=== PATIENT | female | born 1945 | race Caucasian/White ===

== ENCOUNTER 2020-02-12 17:58 | Inpatient (IN) | payer MEDICARE, MEDICAID ==
[~2020-02-12] VITALS: Ht 167.6 cm; Wt 67.7 kg
[2020-02-12] MEDS ORDERED: SODIUM CHLORIDE 0.9% 1,000 ML IV ONE (18:45)
[2020-02-12 19:14] LABS: BASOPHILS % 0.7 % (0.0-2.0); CHLORIDE 103 mEq/L (98-107); EOSINOPHILS % 0.7 % (0.0-5.0); HEMATOCRIT. 42.2 % (36.0-48.0); HEMOGLOBIN. 14.6 g/dL (12.0-16.0); MEAN CORPUSCULAR HEMOGLOBIN 31.9 pg (28.0-32.0); MEAN CORPUSCULAR VOLUME 92.5 fL (81.0-99.0); MEAN PLATELET VOLUME 7.4 fl (7.4-10.4); NEUTROPHILS % 73.6 % (40.0-76.0); PLATELET 260 x1000/uL (130-400); RED BLOOD CELL COUNT 4.57 mill/uL (4.2-5.4); RED CELL DISTRIBUTION WIDTH 14.4 % (11.6-14.6)
[2020-02-12 19:53] LABS: CLARITY URINE CLEAR (CLEAR); COLOR URINE YELLOW (YELLOW); KETONES URINE NEGATIVE (NEGATIVE); LEUKOCYTE ESTERASE URINE TRACE (NEGATIVE); NITRITE URINE NEGATIVE (NEGATIVE); OCCULT BLOOD URINE NEGATIVE (NEGATIVE); PROTEIN URINE TRACE (NEGATIVE); SPECIFIC GRAVITY URINE 1.014 (1.005-1.030)
[2020-02-12] MEDS ORDERED: ACETAMINOPHEN 325MG TABLET PO ONE (20:45)
[2020-02-12] MEDS ORDERED: ACETAMINOPHEN 325MG TABLET PO PRN (21:00)
[2020-02-12] MEDS: SODIUM CHLORIDE 0.9% 1,000 ML IV SCH (21:26)
[2020-02-13 00:10] VITALS: BP 144/60
[2020-02-13] MEDS: MORPHINE SULFATE 2 MG/ML CPJ (NOT FOR IM USE) IV PRN ×4 (00:35→21:01)
[2020-02-13] MEDS ORDERED: DOXE50CA4 MT (01:00)
[2020-02-13] MEDS ORDERED: MULT-1195 MT (01:00)
[2020-02-13] MEDS ORDERED: DOXE150C MT (01:00)
[2020-02-13] MEDS ORDERED: LORA-250 MT (01:00)
[2020-02-13 04:00] VITALS: BP 137/68
[2020-02-13 08:00] VITALS: BP 130/94
[2020-02-13] MEDS: ENOXAPARIN 30MG/0.3ML SYR SUBCUT SCH (08:08)
[2020-02-13] MEDS ORDERED: ENOXAPARIN 40MG/0.4ML SYR SUBCUT SCH (09:00)
[2020-02-13 09:03] LABS: *AMPHETAMINES SCREEN URINE NEGATIVE (NEGATIVE); *BARBITURATES SCREEN URINE NEGATIVE (NEGATIVE); *BENZODIAZEPINES SCREEN URINE NEGATIVE (NEGATIVE); *COCAINE SCREEN URINE NEGATIVE (NEGATIVE)
[2020-02-13 09:04] LABS: CANNABINOID URINE SCREEN PRESUMTIVE POSITIVE (NEGATIVE); METHADONE URINE SCREEN NEGATIVE (NEGATIVE); OPIATES URINE SCREEN NEGATIVE (NEGATIVE); PHENCYCLIDINE URINE SCREEN NEGATIVE (NEGATIVE)
[2020-02-13 12:00] VITALS: BP 135/59
[2020-02-13] MEDS: SODIUM CHLORIDE 0.9% 1,000 ML IV SCH (13:08)
[2020-02-13 16:00] VITALS: BP 147/72
[2020-02-13 20:00] VITALS: BP 122/71
[2020-02-14] VITALS (8 sets, daily range): BP systolic 119–192; BP diastolic 60–91
[2020-02-14] MEDS: LORAZEPAM 2MG/ML CPJ IV PRN ×3 (00:30→21:33)
[2020-02-14] MEDS: HYDROCODONE/ACETAMINOPHEN 5/325MG TABLET PO PRN (01:33)
[2020-02-14] MEDS: MORPHINE SULFATE 2 MG/ML CPJ (NOT FOR IM USE) IV PRN ×2 (05:59→17:03)
[2020-02-14] MEDS ORDERED: CLONIDINE 0.1MG TABLET PO PRN (08:30)
[2020-02-14] MEDS: AMLODIPINE 10MG TABLET PO SCH (08:42)
[2020-02-14] MEDS: ENOXAPARIN 30MG/0.3ML SYR SUBCUT SCH (08:43)
[2020-02-14] MEDS ORDERED: HYDRALAZINE HCL 100MG TABLET PO SCH (12:30)
[2020-02-14] MEDS ORDERED: DIAZEPAM 5 MG TABLET PO NR (13:15)
[2020-02-14] MEDS ORDERED: BISACODYL 10MG SUPP PR NR (13:15)
[2020-02-14] MEDS: NICOTINE 14MG PATCH TD SCH (14:11)
[2020-02-14 17:21] LABS: BASOPHILS % 0.8 % (0.0-2.0); EOSINOPHILS % 0.2 % (0.0-5.0); HEMATOCRIT. 43.9 % (36.0-48.0); LYMPHOCYTES % 14.7 % (20.0-50.0); MEAN CORPUSCULAR HEMOGLOBIN 30.9 pg (28.0-32.0); MEAN CORPUSCULAR VOLUME 90.6 fL (81.0-99.0); MEAN PLATELET VOLUME 7.5 fl (7.4-10.4); MONOCYTES % 11.7 % (2.0-8.0); NEUTROPHILS % 72.6 % (40.0-76.0); PLATELET 307 x1000/uL (130-400); RED BLOOD CELL COUNT 4.84 mill/uL (4.2-5.4); RED CELL DISTRIBUTION WIDTH 14.2 % (11.6-14.6)
[2020-02-14 19:27] LABS: VITAMIN B12 SERUM 1897 pg/mL (211-911)
[2020-02-14] MEDS: HYDRALAZINE HCL 100MG TABLET PO SCH (21:39)
[2020-02-15] MEDS: HYDROCODONE/ACETAMINOPHEN 5/325MG TABLET PO PRN ×3 (02:36→15:57)
[2020-02-15 04:00] VITALS: BP 140/60
[2020-02-15 08:00] VITALS: BP 119/71
[2020-02-15] MEDS: HYDRALAZINE HCL 100MG TABLET PO SCH ×2 (08:59→23:00)
[2020-02-15] MEDS: NICOTINE 14MG PATCH TD SCH (09:00)
[2020-02-15] MEDS: ENOXAPARIN 30MG/0.3ML SYR SUBCUT SCH (09:00)
[2020-02-15] MEDS: AMLODIPINE 10MG TABLET PO SCH (09:01)
[2020-02-15 12:00] VITALS: BP 109/69
[2020-02-15 16:00] VITALS: BP 109/70
[2020-02-15] MEDS ORDERED: DEXAMETHASONE 4MG/ML 1ML VIAL IV SCH (18:00)
[2020-02-15] MEDS ORDERED: REGADENOSON 0.4 MG/5 ML IV NR (18:30)
[2020-02-15 19:44] LABS: PROTHROMBIN TIME 11.3 sec (9.6-11.0)
[2020-02-15 19:57] LABS: D-DIMER 1.56 mg/L FEU (<0.50); PARTIAL THROMBOPLASTIN TIME 29.9 sec (23.4-31.0)
[2020-02-15 20:00] VITALS: BP 134/84
[2020-02-15] MEDS ORDERED: NICOTINE 21MG PATCH TD SCH (20:00)
[2020-02-15] MEDS: MORPHINE SULFATE 2 MG/ML CPJ (NOT FOR IM USE) IV PRN (23:02)
[2020-02-16] VITALS: BP 133/72
[2020-02-16 04:00] VITALS: BP 129/66
[2020-02-16 06:21] LABS: BASOPHILS % 0.3 % (0.0-2.0); HEMATOCRIT. 45.1 % (36.0-48.0); HEMOGLOBIN. 15.5 g/dL (12.0-16.0); LYMPHOCYTES % 13.4 % (20.0-50.0); MEAN CORPUSCULAR HEMOGLOBIN 31.3 pg (28.0-32.0); MEAN CORPUSCULAR VOLUME 91.1 fL (81.0-99.0); MEAN PLATELET VOLUME 7.3 fl (7.4-10.4); MONOCYTES % 6.6 % (2.0-8.0); NEUTROPHILS % 79.7 % (40.0-76.0); PLATELET 347 x1000/uL (130-400); RED BLOOD CELL COUNT 4.95 mill/uL (4.2-5.4); RED CELL DISTRIBUTION WIDTH 14.1 % (11.6-14.6)
[2020-02-16 08:00] VITALS: BP 127/69
[2020-02-16] MEDS: HYDRALAZINE HCL 100MG TABLET PO SCH (08:50)
[2020-02-16] MEDS: AMLODIPINE 10MG TABLET PO SCH (08:50)
[2020-02-16] MEDS ORDERED: NICOTINE 21MG PATCH TD SCH (09:00)
[2020-02-16] MEDS: HYDROCODONE/ACETAMINOPHEN 5/325MG TABLET PO PRN (09:22)
[2020-02-16] MEDS ORDERED: CARVEDILOL 12.5MG TABLET PO SCH (10:00)
[2020-02-16 12:00] VITALS: BP 120/51
[2020-02-16] MEDS ORDERED: IPRATROPIUM/ALBUTEROL 0.5-3(2.5)MG/3ML NEB HHN SCH (12:00)
[2020-02-16] MEDS ORDERED: BUDESONIDE 0.5MG/2ML NEB HHN SCH (12:00)
[2020-02-16 13:39] VITALS: BP 120/51
== END 2020-02-16 15:22 | DRG 562 ==
LOC: ER 17:58 → 5WST 21:00 → EDBEDREQ 21:02 → EDBEDREQTM 21:02 → ENRESERV 22:50
PROVIDERS: ADMIT Internal Medicine; ATTEND Internal Medicine
DX: S82.234A Nondisplaced oblique fracture of shaft of right tibia, initial encounter for closed fracture (principal); N17.0 Acute kidney failure with tubular necrosis; G82.50 Quadriplegia, unspecified; E87.1 Hypo-osmolality and hyponatremia; G95.20 Unspecified cord compression; G99.2 Myelopathy in diseases classified elsewhere; M48.061 Spinal stenosis, lumbar region without neurogenic claudication; G90.8 Other disorders of autonomic nervous system; F12.90 Cannabis use, unspecified, uncomplicated; R29.6 Repeated falls; I10 Essential (primary) hypertension; M41.9 Scoliosis, unspecified; J44.9 Chronic obstructive pulmonary disease, unspecified; M48.02 Spinal stenosis, cervical region; Z91.81 History of falling; S82.831A Other fracture of upper and lower end of right fibula, initial encounter for closed fracture; E78.5 Hyperlipidemia, unspecified; F17.200 Nicotine dependence, unspecified, uncomplicated; N18.9 Chronic kidney disease, unspecified; F41.9 Anxiety disorder, unspecified; W18.39XA Other fall on same level, initial encounter; Y93.89 Activity, other specified; Y92.89 Other specified places as the place of occurrence of the external cause; Y99.8 Other external cause status
CPT/HCPCS: 36415; 70551; 71045; 72141; 72148; 73610; 80048; 80053; 80305; 81003; 82570; 82607; 83880; 84300; 84484; 85025; 85379; 85384; 93005; 93306; 97162; 97166; 97530; 97535; 99285; J1100; J1650; J2060; J2270; J7030; J7626; L0172

== ENCOUNTER 2020-02-27 23:58 | Inpatient (IN) | payer MEDICARE, MEDICAID ==
[~2020-02-27] VITALS: Ht 167.6 cm; Wt 67.6 kg
[~2020-02-27 23:58] MED LIST: DOXE150C MT; DOXE50CA4 MT; LORA-250 MT; MULT-1195 MT
[2020-02-28] VITALS (7 sets, daily range): BP systolic 104–160; BP diastolic 47–71
[2020-02-28] MEDS ORDERED: CEFEPIME 1,000 MG in DEXTROSE 5% WATER 50 ML IV SCH (02:00)
[2020-02-28] MEDS: HYDRALAZINE HCL 100MG TABLET PO SCH ×3 (05:33→21:23)
[2020-02-28 07:34] LABS: HEMATOCRIT. 37.9 % (36.0-48.0); MEAN CORPUSCULAR HEMOGLOBIN 30.9 pg (28.0-32.0); MEAN CORPUSCULAR VOLUME 90.2 fL (81.0-99.0); MEAN PLATELET VOLUME 8.1 fl (7.4-10.4); PLATELET 176 x1000/uL (130-400); RED CELL DISTRIBUTION WIDTH 13.7 % (11.6-14.6)
[2020-02-28 07:38] LABS: CHLORIDE 97 mEq/L (98-107)
[2020-02-28] MEDS: ENOXAPARIN 40MG/0.4ML SYR SUBCUT SCH (09:23)
[2020-02-28] MEDS: CARVEDILOL 12.5MG TABLET PO SCH ×2 (09:23→21:23)
[2020-02-28] MEDS ORDERED: IPRATROPIUM/ALBUTEROL 0.5-3(2.5)MG/3ML NEB HHN PRN (13:45)
[2020-02-28 14:39] LABS: PLATELET ESTIMATE NORMAL
[2020-02-28] MEDS: PREDNISONE 20MG TABLET PO SCH (15:06)
[2020-02-28 17:26] LABS: CLARITY URINE CLEAR (CLEAR); COLOR URINE DARK YELLOW (YELLOW); KETONES URINE 1+ (NEGATIVE); LEUKOCYTE ESTERASE URINE NEGATIVE (NEGATIVE); NITRITE URINE NEGATIVE (NEGATIVE); OCCULT BLOOD URINE NEGATIVE (NEGATIVE); PROTEIN URINE TRACE (NEGATIVE); SPECIFIC GRAVITY URINE 1.017 (1.005-1.030)
[2020-02-28] MEDS: ACETAMINOPHEN 325MG TABLET PO PRN (17:31)
[2020-02-28] MEDS: IPRATROPIUM/ALBUTEROL 0.5-3(2.5)MG/3ML NEB HHN SCH (21:34)
[2020-02-28] MEDS: BUDESONIDE 0.5MG/2ML NEB HHN SCH (21:35)
[2020-02-28] MEDS: DOXEPIN HCL 25MG CAPSULE PO SCH (22:21)
[2020-02-29] VITALS: BP 109/51
[2020-02-29] MEDS: IPRATROPIUM/ALBUTEROL 0.5-3(2.5)MG/3ML NEB HHN SCH ×4 (01:12→21:00)
[2020-02-29 04:00] VITALS: BP 120/49
[2020-02-29] MEDS: HYDRALAZINE HCL 100MG TABLET PO SCH ×3 (06:53→21:36)
[2020-02-29] MEDS: AZTREONAM 2 GM in DEXT 5% WATER 100 ML IV SCH ×2 (06:54→17:35)
[2020-02-29] MEDS: PREDNISONE 20MG TABLET PO SCH (07:15)
[2020-02-29 08:00] VITALS: BP 134/56
[2020-02-29] MEDS ORDERED: VANCOMYCIN 1 G PREMIX 200 ML IV NR (08:00)
[2020-02-29] MEDS: ENOXAPARIN 40MG/0.4ML SYR SUBCUT SCH (08:41)
[2020-02-29] MEDS: CARVEDILOL 12.5MG TABLET PO SCH ×2 (08:41→21:36)
[2020-02-29] MEDS: BUDESONIDE 0.5MG/2ML NEB HHN SCH ×2 (10:00→21:00)
[2020-02-29] MEDS: HYDROCODONE/ACETAMINOPHEN 5/325MG TABLET PO PRN ×2 (12:24→17:35)
[2020-02-29 17:14] LABS: BG BASE EXCESS -0.4 mmol/L (-2.0-2.0); BG CARBOXYHEMOGLOBIN 0.8 % (0.5-1.5); BG DEOXYHEMOGLOBIN 6.6 % (0.0-5.0); BG FRACTION INSPIRED OXYGEN 21; BG HCO3 ACT 20.2 mmol/L (22.0-26.0); BG METHEMOGLOBIN 0.3 % (0.0-1.5); BG OXYGEN SATURATION 93.3 % (92.0-98.5); BG OXYHEMOGLOBIN 92.3 % (94.0-97.0); BG PCO2 24.3 mmHg (35.0-45.0); BG PH 7.538 (7.350-7.450); BG PO2 58.9 mmHg (75.0-100.0); BG SAMPLE SITE RIGHT RADIAL; BG TOTAL HEMOGLOBIN 15.3 g/dL (12.0-18.0); BG VENT MODE ROOM AIR
[2020-02-29 20:14] VITALS: BP 140/62
[2020-02-29] MEDS: DOXEPIN HCL 25MG CAPSULE PO SCH (21:36)
[2020-03-01 00:49] VITALS: BP 111/53
[2020-03-01] MEDS: IPRATROPIUM/ALBUTEROL 0.5-3(2.5)MG/3ML NEB HHN SCH ×4 (02:35→20:45)
[2020-03-01 04:56] VITALS: BP 142/68
[2020-03-01] MEDS: HYDRALAZINE HCL 100MG TABLET PO SCH ×3 (05:30→22:00)
[2020-03-01] MEDS: AZTREONAM 2 GM in DEXT 5% WATER 100 ML IV SCH ×2 (05:35→18:59)
[2020-03-01 08:13] VITALS: BP 137/61
[2020-03-01] MEDS: CARVEDILOL 12.5MG TABLET PO SCH ×2 (08:17→21:21)
[2020-03-01] MEDS: PREDNISONE 20MG TABLET PO SCH (08:17)
[2020-03-01] MEDS: ENOXAPARIN 40MG/0.4ML SYR SUBCUT SCH (08:17)
[2020-03-01] MEDS: BUDESONIDE 0.5MG/2ML NEB HHN SCH ×2 (08:55→20:46)
[2020-03-01 12:02] VITALS: BP 128/81
[2020-03-01] MEDS: HYDROCODONE/ACETAMINOPHEN 5/325MG TABLET PO PRN (14:39)
[2020-03-01 15:48] VITALS: BP 103/64
[2020-03-01 20:00] VITALS: BP 110/66
[2020-03-01] MEDS: DOXEPIN HCL 25MG CAPSULE PO SCH (21:20)
[2020-03-02] VITALS: BP 101/78
[2020-03-02] MEDS: IPRATROPIUM/ALBUTEROL 0.5-3(2.5)MG/3ML NEB HHN SCH ×3 (02:50→12:43)
[2020-03-02 04:00] VITALS: BP 106/78
[2020-03-02] MEDS: HYDRALAZINE HCL 100MG TABLET PO SCH ×3 (06:00→22:43)
[2020-03-02] MEDS: PREDNISONE 20MG TABLET PO SCH (06:03)
[2020-03-02] MEDS: AZTREONAM 2 GM in DEXT 5% WATER 100 ML IV SCH ×2 (06:03→18:57)
[2020-03-02 08:00] VITALS: BP 141/63
[2020-03-02] MEDS: ENOXAPARIN 40MG/0.4ML SYR SUBCUT SCH (10:20)
[2020-03-02] MEDS: CARVEDILOL 12.5MG TABLET PO SCH ×2 (10:20→22:43)
[2020-03-02] MEDS: HYDROCODONE/ACETAMINOPHEN 5/325MG TABLET PO PRN (10:27)
[2020-03-02 12:00] VITALS: BP 105/57
[2020-03-02 16:00] VITALS: BP 140/75
[2020-03-02 20:00] VITALS: BP 119/70
[2020-03-02] MEDS: DOXEPIN HCL 25MG CAPSULE PO SCH (22:43)
[2020-03-02] MEDS: NICOTINE 14MG PATCH TD SCH (22:44)
[2020-03-03] VITALS: BP 100/60
[2020-03-03] MEDS: IPRATROPIUM/ALBUTEROL 0.5-3(2.5)MG/3ML NEB HHN SCH ×4 (00:09→19:48)
[2020-03-03 04:00] VITALS: BP 110/60
[2020-03-03] MEDS: HYDRALAZINE HCL 100MG TABLET PO SCH ×2 (06:00→14:00)
[2020-03-03] MEDS: AZTREONAM 2 GM in DEXT 5% WATER 100 ML IV SCH ×2 (06:48→18:11)
[2020-03-03 08:00] VITALS: BP 114/51
[2020-03-03] MEDS: NICOTINE 14MG PATCH TD SCH (08:56)
[2020-03-03] MEDS: HYDROCODONE/ACETAMINOPHEN 5/325MG TABLET PO PRN ×3 (08:56→20:34)
[2020-03-03] MEDS: CARVEDILOL 12.5MG TABLET PO SCH ×2 (08:57→20:34)
[2020-03-03] MEDS: ENOXAPARIN 40MG/0.4ML SYR SUBCUT SCH (08:57)
[2020-03-03] MEDS: BUDESONIDE 0.5MG/2ML NEB HHN SCH (08:57)
[2020-03-03 12:00] VITALS: BP 124/61
[2020-03-03 16:00] VITALS: BP 133/61
[2020-03-03 16:14] LABS: BASOPHILS % 0.1 % (0.0-2.0); EOSINOPHILS % 2.8 % (0.0-5.0); HEMATOCRIT. 38.7 % (36.0-48.0); HEMOGLOBIN. 13.5 g/dL (12.0-16.0); LYMPHOCYTES % 9.5 % (20.0-50.0); MEAN CORPUSCULAR HEMOGLOBIN 31.3 pg (28.0-32.0); MEAN CORPUSCULAR VOLUME 89.9 fL (81.0-99.0); MEAN PLATELET VOLUME 8.5 fl (7.4-10.4); NEUTROPHILS % 84.6 % (40.0-76.0); PLATELET 160 x1000/uL (130-400); RED BLOOD CELL COUNT 4.31 mill/uL (4.2-5.4); RED CELL DISTRIBUTION WIDTH 14.2 % (11.6-14.6)
[2020-03-03] MEDS: SODIUM CHLORIDE 0.9% 1,000 ML IV SCH (17:36)
[2020-03-03 20:00] VITALS: BP 122/61
[2020-03-03] MEDS: DOXEPIN HCL 25MG CAPSULE PO SCH (20:35)
[2020-03-03] MEDS: LORAZEPAM 0.5MG TABLET PO PRN (21:47)
[2020-03-03] MEDS: HYDRALAZINE HCL 50MG TABLET PO SCH (22:00)
[2020-03-04] VITALS: BP 94/41
[2020-03-04] MEDS: IPRATROPIUM/ALBUTEROL 0.5-3(2.5)MG/3ML NEB HHN SCH ×4 (00:23→21:04)
[2020-03-04] MEDS: HYDROCODONE/ACETAMINOPHEN 5/325MG TABLET PO PRN ×2 (02:10→06:43)
[2020-03-04 04:00] VITALS: BP 104/44
[2020-03-04] MEDS: HYDRALAZINE HCL 50MG TABLET PO SCH (06:00)
[2020-03-04] MEDS: AZTREONAM 2 GM in DEXT 5% WATER 100 ML IV SCH ×2 (06:07→17:40)
[2020-03-04 08:00] VITALS: BP 125/54
[2020-03-04] MEDS: CARVEDILOL 12.5MG TABLET PO SCH ×2 (09:06→21:16)
[2020-03-04] MEDS: NICOTINE 14MG PATCH TD SCH (09:06)
[2020-03-04] MEDS: ENOXAPARIN 40MG/0.4ML SYR SUBCUT SCH (09:06)
[2020-03-04 12:00] VITALS: BP 106/55
[2020-03-04] MEDS: SODIUM CHLORIDE 0.9% 1,000 ML IV SCH (12:25)
[2020-03-04] MEDS: HYDROCODONE/ACETAMINOPHEN 10/325MG TABLET PO PRN ×2 (14:13→21:17)
[2020-03-04 16:00] VITALS: BP 110/62
[2020-03-04 17:05] LABS: CLARITY URINE CLOUDY (CLEAR); COLOR URINE YELLOW (YELLOW); KETONES URINE NEGATIVE (NEGATIVE); LEUKOCYTE ESTERASE URINE 3+ (NEGATIVE); NITRITE URINE POSITIVE (NEGATIVE); OCCULT BLOOD URINE 3+ (NEGATIVE); PROTEIN URINE NEGATIVE (NEGATIVE); SPECIFIC GRAVITY URINE 1.016 (1.005-1.030); UROBILINOGEN URINE 0.2 E.U./dL (0.2-1.0)
[2020-03-04] MEDS: DOCUSATE SODIUM 250MG CAPSULE PO SCH (17:40)
[2020-03-04] MEDS ORDERED: SORBITOL 70% SOLN 30ML PO SCH (18:00)
[2020-03-04 20:00] VITALS: BP 135/61
[2020-03-04] MEDS: LORAZEPAM 0.5MG TABLET PO PRN (21:16)
[2020-03-04] MEDS: DOXEPIN HCL 25MG CAPSULE PO SCH (21:19)
[2020-03-05] VITALS: BP 99/51
[2020-03-05] MEDS: IPRATROPIUM/ALBUTEROL 0.5-3(2.5)MG/3ML NEB HHN SCH ×4 (01:20→23:28)
[2020-03-05] MEDS: SODIUM CHLORIDE 0.9% 1,000 ML IV SCH ×2 (01:54→15:14)
[2020-03-05 04:00] VITALS: BP 115/50
[2020-03-05] MEDS ORDERED: AZTREONAM 1G in DEXTROSE 5% WATER 50ML IV SCH (06:00)
[2020-03-05 08:00] VITALS: BP 100/31
[2020-03-05] MEDS: DOCUSATE SODIUM 250MG CAPSULE PO SCH (08:25)
[2020-03-05] MEDS: NICOTINE 14MG PATCH TD SCH (08:25)
[2020-03-05] MEDS: ENOXAPARIN 30MG/0.3ML SYR SUBCUT SCH (08:26)
[2020-03-05] MEDS: HYDROCODONE/ACETAMINOPHEN 10/325MG TABLET PO PRN ×2 (08:27→14:35)
[2020-03-05] MEDS: CARVEDILOL 12.5MG TABLET PO SCH (08:45)
[2020-03-05 12:00] VITALS: BP 99/61
[2020-03-05] MEDS ORDERED: BISACODYL 10MG SUPP PR NR (12:30)
[2020-03-05] MEDS: BISACODYL 10MG SUPP PR PRN (13:07)
[2020-03-05] MEDS: CEFTRIAXONE 1 G PREMIX 50 ML IV SCH (14:34)
[2020-03-05 16:00] VITALS: BP 121/58
[2020-03-05 20:00] VITALS: BP 107/72
[2020-03-05] MEDS: DOXEPIN HCL 25MG CAPSULE PO SCH (21:44)
[2020-03-05] MEDS: LORAZEPAM 0.5MG TABLET PO PRN (22:07)
[2020-03-06] VITALS: BP 105/44
[2020-03-06] MEDS: HYDROCODONE/ACETAMINOPHEN 10/325MG TABLET PO PRN ×4 (01:20→23:13)
[2020-03-06 04:00] VITALS: BP 123/92
[2020-03-06] MEDS: SODIUM CHLORIDE 0.9% 1,000 ML IV SCH (04:34)
[2020-03-06 07:25] LABS: HEMATOCRIT 32.9 % (36.0-48.0); HEMOGLOBIN 11.3 g/dL (12.0-16.0); MEAN CORPUSCULAR VOLUME 90.3 fL (81.0-99.0); PLATELET 251 x1000/uL (130-400); RED BLOOD CELL COUNT 3.64 mill/uL (4.2-5.4); RED CELL DISTRIBUTION WIDTH 14.3 % (11.6-14.6)
[2020-03-06 07:31] LABS: CHLORIDE 108 mEq/L (98-107)
[2020-03-06 08:00] VITALS: BP 110/59
[2020-03-06] MEDS: NICOTINE 14MG PATCH TD SCH (08:29)
[2020-03-06] MEDS: DOCUSATE SODIUM 250MG CAPSULE PO SCH (08:29)
[2020-03-06] MEDS: ENOXAPARIN 30MG/0.3ML SYR SUBCUT SCH (08:30)
[2020-03-06] MEDS: IPRATROPIUM/ALBUTEROL 0.5-3(2.5)MG/3ML NEB HHN SCH ×3 (09:21→20:55)
[2020-03-06] MEDS: CEFTRIAXONE 1 G PREMIX 50 ML IV SCH (10:23)
[2020-03-06 12:00] VITALS: BP 127/58
[2020-03-06] MEDS ORDERED: BUMETANIDE 0.25MG/ML 2ML VIAL IV NR (14:00)
[2020-03-06] MEDS ORDERED: BUMETANIDE 1MG/4ML VIAL IV NR (14:05)
[2020-03-06 16:00] VITALS: BP 124/58
[2020-03-06] MEDS: BISACODYL 10MG SUPP PR PRN (18:52)
[2020-03-06 20:00] VITALS: BP 130/66
[2020-03-06] MEDS: LORAZEPAM 0.5MG TABLET PO PRN (22:32)
[2020-03-06] MEDS: DOXEPIN HCL 25MG CAPSULE PO SCH (22:32)
[2020-03-07] VITALS: BP 106/48
[2020-03-07] MEDS: IPRATROPIUM/ALBUTEROL 0.5-3(2.5)MG/3ML NEB HHN SCH ×4 (02:35→21:04)
[2020-03-07 04:00] VITALS: BP 109/43
[2020-03-07] MEDS: HYDROCODONE/ACETAMINOPHEN 10/325MG TABLET PO PRN ×3 (05:45→22:57)
[2020-03-07 07:53] LABS: HEMATOCRIT 31.5 % (36.0-48.0); HEMOGLOBIN 10.9 g/dL (12.0-16.0); MEAN CORPUSCULAR HEMOGLOBIN 31.2 pg (28.0-32.0); MEAN CORPUSCULAR VOLUME 90.6 fL (81.0-99.0); PLATELET 301 x1000/uL (130-400); RED BLOOD CELL COUNT 3.48 mill/uL (4.2-5.4); RED CELL DISTRIBUTION WIDTH 14.3 % (11.6-14.6)
[2020-03-07 08:00] VITALS: BP 121/58
[2020-03-07 08:07] LABS: CHLORIDE 110 mEq/L (98-107)
[2020-03-07] MEDS: ENOXAPARIN 40MG/0.4ML SYR SUBCUT SCH (08:54)
[2020-03-07] MEDS: DOCUSATE SODIUM 250MG CAPSULE PO SCH (08:54)
[2020-03-07] MEDS: NICOTINE 14MG PATCH TD SCH (08:56)
[2020-03-07] MEDS: ACETAMINOPHEN 325MG TABLET PO PRN (09:09)
[2020-03-07 12:00] VITALS: BP 142/64
[2020-03-07] MEDS: CEFTRIAXONE 1 G PREMIX 50 ML IV SCH (13:18)
[2020-03-07 20:00] VITALS: BP 129/56
[2020-03-07] MEDS: GUAIFENESIN 600MG ER TABLET PO SCH (22:20)
[2020-03-07] MEDS: LORAZEPAM 0.5MG TABLET PO PRN (22:20)
[2020-03-07] MEDS: DOXEPIN HCL 25MG CAPSULE PO SCH (22:20)
[2020-03-08] VITALS: BP 134/66
[2020-03-08] MEDS: IPRATROPIUM/ALBUTEROL 0.5-3(2.5)MG/3ML NEB HHN SCH ×3 (02:47→14:45)
[2020-03-08] MEDS: ACETAMINOPHEN 325MG TABLET PO PRN (03:35)
[2020-03-08 04:00] VITALS: BP 142/61
[2020-03-08] MEDS: HYDROCODONE/ACETAMINOPHEN 10/325MG TABLET PO PRN (05:04)
[2020-03-08 08:00] VITALS: BP 127/41
[2020-03-08] MEDS: DOCUSATE SODIUM 250MG CAPSULE PO SCH (09:07)
[2020-03-08] MEDS: ENOXAPARIN 40MG/0.4ML SYR SUBCUT SCH (09:07)
[2020-03-08] MEDS: GUAIFENESIN 600MG ER TABLET PO SCH ×2 (09:07→21:54)
[2020-03-08] MEDS: CEFTRIAXONE 1 G PREMIX 50 ML IV SCH (09:07)
[2020-03-08] MEDS: NICOTINE 14MG PATCH TD SCH (09:07)
[2020-03-08 12:00] VITALS: BP 134/62
[2020-03-08] MEDS ORDERED: MORPHINE SULFATE 2 MG/ML CPJ (NOT FOR IM USE) IV NR (12:41)
[2020-03-08] MEDS: TAMSULOSIN HCL 0.4MG SR CAPSULE PO SCH (12:48)
[2020-03-08 16:00] VITALS: BP 166/69
[2020-03-08] MEDS: CLONIDINE 0.1MG TABLET PO PRN (18:06)
[2020-03-08] MEDS ORDERED: NON FORMULARY PATIENT HOME MED XX PRN (19:45)
[2020-03-08 20:00] VITALS: BP 166/82
[2020-03-08] MEDS: MORPHINE SULFATE 2 MG/ML CPJ (NOT FOR IM USE) IV PRN (20:13)
[2020-03-08] MEDS: PANTOPRAZOLE SODIUM 40 MG/VIAL IV SCH (21:54)
[2020-03-08] MEDS: DOXEPIN HCL 25MG CAPSULE PO SCH (21:55)
[2020-03-08] MEDS: LORAZEPAM 0.5MG TABLET PO PRN (22:01)
[2020-03-08] MEDS ORDERED: DIATR MEGLU/DIATRIZOATE SOLN 30ML PO ONE (23:00)
[2020-03-09] VITALS: BP 138/78
[2020-03-09] MEDS: MORPHINE SULFATE 2 MG/ML CPJ (NOT FOR IM USE) IV PRN ×3 (03:39→21:19)
[2020-03-09 04:00] VITALS: BP 142/86
[2020-03-09 07:29] LABS: BASOPHILS % 0.6 % (0.0-2.0); EOSINOPHILS % 7.4 % (0.0-5.0); HEMATOCRIT. 33.4 % (36.0-48.0); HEMOGLOBIN. 11.6 g/dL (12.0-16.0); LYMPHOCYTES % 13.7 % (20.0-50.0); MEAN CORPUSCULAR HEMOGLOBIN 31.5 pg (28.0-32.0); MEAN CORPUSCULAR VOLUME 90.9 fL (81.0-99.0); MONOCYTES % 6.9 % (2.0-8.0); NEUTROPHILS % 71.4 % (40.0-76.0); PLATELET 358 x1000/uL (130-400); RED BLOOD CELL COUNT 3.67 mill/uL (4.2-5.4); RED CELL DISTRIBUTION WIDTH 14.5 % (11.6-14.6)
[2020-03-09 08:00] VITALS: BP 169/85
[2020-03-09] MEDS: ENOXAPARIN 40MG/0.4ML SYR SUBCUT SCH (08:19)
[2020-03-09] MEDS: DOCUSATE SODIUM 250MG CAPSULE PO SCH (08:20)
[2020-03-09] MEDS: NICOTINE 14MG PATCH TD SCH (08:20)
[2020-03-09] MEDS: CLONIDINE 0.1MG TABLET PO PRN (08:20)
[2020-03-09] MEDS: TAMSULOSIN HCL 0.4MG SR CAPSULE PO SCH (08:20)
[2020-03-09] MEDS: GUAIFENESIN 600MG ER TABLET PO SCH ×2 (08:20→21:20)
[2020-03-09] MEDS: PANTOPRAZOLE SODIUM 40 MG/VIAL IV SCH (08:21)
[2020-03-09] MEDS: IPRATROPIUM/ALBUTEROL 0.5-3(2.5)MG/3ML NEB HHN SCH ×3 (08:40→21:40)
[2020-03-09] MEDS ORDERED: AMLODIPINE 2.5MG TABLET PO NR (10:00)
[2020-03-09] MEDS ORDERED: IOHEXOL-300 100 ML BOTTLE ONE (10:56)
[2020-03-09 12:00] VITALS: BP 118/65
[2020-03-09] MEDS: CEFTRIAXONE 1 G PREMIX 50 ML IV SCH (12:09)
[2020-03-09] MEDS ORDERED: HYDROCODONE/ACETAMINOPHEN 5/325MG TABLET PO PRN (15:15)
[2020-03-09 16:00] VITALS: BP 140/85
[2020-03-09 20:00] VITALS: BP 128/73
[2020-03-09] MEDS ORDERED: AMLODIPINE 2.5MG TABLET PO SCH (21:00)
[2020-03-09] MEDS: DOXEPIN HCL 25MG CAPSULE PO SCH (21:20)
[2020-03-09] MEDS: AMLODIPINE 5MG TABLET PO SCH (21:21)
[2020-03-09] MEDS: HYDRALAZINE HCL 25MG TABLET PO SCH (21:21)
[2020-03-09] MEDS: LORAZEPAM 0.5MG TABLET PO PRN (21:29)
[2020-03-10] VITALS: BP 109/50
[2020-03-10] MEDS: IPRATROPIUM/ALBUTEROL 0.5-3(2.5)MG/3ML NEB HHN SCH ×2 (02:29→08:16)
[2020-03-10 04:00] VITALS: BP 128/59
[2020-03-10] MEDS: MORPHINE SULFATE 2 MG/ML CPJ (NOT FOR IM USE) IV PRN (06:55)
[2020-03-10 07:52] VITALS: BP 144/68
[2020-03-10 08:00] VITALS: BP 144/68
[2020-03-10] MEDS: HYDRALAZINE HCL 25MG TABLET PO SCH (08:22)
[2020-03-10] MEDS: GUAIFENESIN 600MG ER TABLET PO SCH (08:22)
[2020-03-10] MEDS: DOCUSATE SODIUM 250MG CAPSULE PO SCH (08:22)
[2020-03-10] MEDS: AMLODIPINE 5MG TABLET PO SCH (08:23)
[2020-03-10] MEDS: NICOTINE 14MG PATCH TD SCH (08:23)
[2020-03-10] MEDS: TAMSULOSIN HCL 0.4MG SR CAPSULE PO SCH (08:23)
[2020-03-10] MEDS: ENOXAPARIN 40MG/0.4ML SYR SUBCUT SCH (08:24)
[2020-03-10] MEDS ORDERED: FAMOTIDINE 20MG TABLET PO SCH (09:00)
== END 2020-03-10 08:40 | DRG 871 ==
LOC: 5WST 23:58
PROVIDERS: ADMIT Internal Medicine; ATTEND Internal Medicine
PROC: 2W3QX2Z Immobilization of Right Lower Leg using Cast (ICD-10-PCS; principal; 2020-03-01)
DX: A41.9 Sepsis, unspecified organism (principal); G93.41 Metabolic encephalopathy; J96.00 Acute respiratory failure, unspecified whether with hypoxia or hypercapnia; I50.31 Acute diastolic (congestive) heart failure; N17.0 Acute kidney failure with tubular necrosis; S82.244A Nondisplaced spiral fracture of shaft of right tibia, initial encounter for closed fracture; J44.1 Chronic obstructive pulmonary disease with (acute) exacerbation; E87.1 Hypo-osmolality and hyponatremia; J98.11 Atelectasis; N13.6 Pyonephrosis; F17.200 Nicotine dependence, unspecified, uncomplicated; F32.9 Major depressive disorder, single episode, unspecified; F41.0 Panic disorder [episodic paroxysmal anxiety]; I11.0 Hypertensive heart disease with heart failure; G90.8 Other disorders of autonomic nervous system; R29.6 Repeated falls; Z20.828 Contact with and (suspected) exposure to other viral communicable diseases; S82.444A Nondisplaced spiral fracture of shaft of right fibula, initial encounter for closed fracture; I07.1 Rheumatic tricuspid insufficiency; R31.9 Hematuria, unspecified; F12.90 Cannabis use, unspecified, uncomplicated; M41.9 Scoliosis, unspecified; M48.02 Spinal stenosis, cervical region; M48.061 Spinal stenosis, lumbar region without neurogenic claudication; W18.39XA Other fall on same level, initial encounter; Y93.89 Activity, other specified; Y92.89 Other specified places as the place of occurrence of the external cause; Y99.8 Other external cause status; Z79.899 Other long term (current) drug therapy; Z88.0 Allergy status to penicillin; F41.9 Anxiety disorder, unspecified
CPT/HCPCS: 36415; 36600; 70551; 71045; 73030; 73610; 74177; 76700; 76770; 80048; 80061; 81003; 82375; 82533; 82550; 82805; 83880; 83930; 83935; 84145; 84443; 85025; 85027; 94640; 97116; 97162; 97530; C9113; J0696; J1650; J2270; J3370; J3490; J7030; J7060; J7512; J7626; Q9963; Q9967; U0003-CS

== ENCOUNTER → 2024-01-20 | Outpatient (CLI) | payer MEDICARE, MEDICAID ==
[~2024-01-20] MED LIST changes: +CLON0.1T PO; -DOXE150C MT; -DOXE50CA4 MT; +DOXE50CA4 PO; +ESCI20TA PO; +LEVO-65 MT; -LORA-250 MT; -MULT-1195 MT; +PREG75CA MT; +T3 PO; +TRAZ-251 PO
== END | disposition home or self-care (01) ==
LOC: RAD 14:47
PROVIDERS: ATTEND Internal Medicine Critical Care Medicine
DX: J44.9 Chronic obstructive pulmonary disease, unspecified (principal)
CPT/HCPCS: 71046